=== PATIENT | female | born 1975 | race Caucasian/White ===

== ENCOUNTER 2020-11-04 21:24 | Emergency (ER) | payer MEDICARE, OTHER ==
[~2020-11-04 21:24] MED LIST: OMNICEF 300 MG300 MG PO; TESSALON PERLE100 MG PO; VENTOLIN HFA 66.7 GM INH
== END 2020-11-05 01:30 | disposition home or self-care (01) ==
LOC: ER1 21:24
DX: M54.16 Radiculopathy, lumbar region (principal); F17.200 Nicotine dependence, unspecified, uncomplicated
CPT/HCPCS: 96372; 99283; J1885

== ENCOUNTER 2020-12-29 20:00 | Emergency (ER) | payer MEDICARE, OTHER ==
[2020-12-29] MEDS ORDERED: CLEOCIN HCL300 MG PO (20:19)
[2020-12-29] MEDS ORDERED: IBUPROFEN600 MG PO (20:19)
== END 2020-12-29 20:40 | disposition home or self-care (01) ==
LOC: ER1 20:00
DX: K04.7 Periapical abscess without sinus (principal); F17.210 Nicotine dependence, cigarettes, uncomplicated; Z88.1 Allergy status to other antibiotic agents
CPT/HCPCS: 96372; 99282

== ENCOUNTER 2021-09-05 23:51 | Emergency (ER) | payer MEDICARE, OTHER ==
[~2021-09-05 23:51] MED LIST changes: +CLEOCIN HCL300 MG PO; +IBUPROFEN600 MG PO
[2021-09-06 01:56] LABS: HEMOGLOBIN 12.5 gm/dl (12.3-15.3); RED BLOOD COUNT 4.04 M/UL (4.00-5.10); WHITE BLOOD COUNT 14.6 K/UL (4.5-11.0)
[2021-09-06 02:42] LABS: BUN/CREATININE RATIO 17 (0-10)
== END 2021-09-06 04:05 | disposition left against medical advice (07) ==
LOC: ER1 23:51
PROVIDERS: Physician Assistant
DX: M00.862 Arthritis due to other bacteria, left knee (principal); F17.210 Nicotine dependence, cigarettes, uncomplicated
CPT/HCPCS: 73564; 73590; 80053; 83605; 85025; 85652; 86140; 87040; 96374; 99283; J1885